=== PATIENT | male | born 1975 | race Caucasian/White ===

== ENCOUNTER 2020-04-02 20:27 | Inpatient (IN) | payer OTHER ==
[~2020-04-02] VITALS: Ht 180.3 cm; Wt 114.3 kg
[2020-04-02 20:35] VITALS: BP 147/97
[2020-04-02 20:53] LABS: ABSOLUTE NEUTROPHILS 9.6 thou/uL (1.4-8.2); BASOPHILS 0.9 % (0.0-2.0); EOSINOPHILS 2.8 % (0.0-3.0); HEMATOCRIT 51.5 % (42.0-52.0); HEMOGLOBIN 17.4 gm/dL (14.0-18.0); LYMPHOCYTES 35.5 % (24.0-44.0); MCH 29.6 pg (26.0-34.0); MCHC 33.9 g/dL (28.0-37.0); MCV 87.2 fL (80.0-100.0); MONOCYTES 5.9 % (1.0-8.0); POLYS 54.9 % (36.0-66.0); RDW 13.3 % (10.5-14.5); WBC 17.5 thou/uL (4.0-11.0)
[2020-04-02 21:13] LABS: PLATELET COUNT 218 thou/uL (150-400)
[2020-04-02 21:18] LABS: ANION GAP 12 mmol/L (7-16); BUN 14 mg/dL (7-18); CALCIUM 9.2 mg/dL (8.5-10.1); CHLORIDE 102 mmol/L (98-107); CO2 25 mmol/L (21-32); CREATININE 1.6 mg/dL (0.7-1.3); GLUCOSE 123 mg/dL (74-106); POTASSIUM 3.4 mmol/L (3.5-5.1); SODIUM 139 mmol/L (136-145)
[2020-04-02 21:25] VITALS: BP 148/104
[2020-04-02 21:25] LABS: DIRECT BILIRUBIN < 0.1 mg/dL (<0.1-0.2); SGOT 51 U/L (15-37); SGPT 118 U/L (30-65); TOTAL BILIRUBIN 0.2 mg/dL (0.2-1.0); TROPONIN-I <0.06 ng/mL (<0.06)
[2020-04-02 21:54] LABS: CHOLESTEROL 162 mg/dL (<200); HDL CHOLESTEROL 43 mg/dL (>40); LDL CHOLESTEROL 64 mg/dL (<100); TC:HDL 3.8 Ratio (Not establshd); TRIGLYCERIDE 279 mg/dL (<150); VLDL 56 mg/dL (<40)
[2020-04-02 21:56] LABS: SERUM ASSESSMENT Clear
[2020-04-02 23:00] VITALS: BP 148/106
[2020-04-02 23:15] VITALS: BP 157/96
[2020-04-02 23:30] VITALS: BP 148/99
[2020-04-02 23:45] VITALS: BP 136/100
[2020-04-03] VITALS (12 sets, daily range): BP systolic 117–150; BP diastolic 75–100
[2020-04-03 04:40] LABS: ANION GAP 11 mmol/L (7-16); BUN 9 mg/dL (7-18); CALCIUM 8.2 mg/dL (8.5-10.1); CHLORIDE 99 mmol/L (98-107); CO2 24 mmol/L (21-32); CREATININE 1.4 mg/dL (0.7-1.3); GLUCOSE 125 mg/dL (74-106); POTASSIUM 3.4 mmol/L (3.5-5.1); SODIUM 134 mmol/L (136-145); TROPONIN-I <0.06 ng/mL (<0.06)
[2020-04-03 04:54] LABS: HEMATOCRIT 43.8 % (42.0-52.0); MCH 32.5 pg (26.0-34.0); MCHC 34.1 g/dL (28.0-37.0); RBC 4.6 mil/uL (4.50-6.00); WBC 10.1 thou/uL (4.0-11.0)
[2020-04-03 05:20] LABS: HEMOGLOBIN 14.9 gm/dL (14.0-18.0); MCV 95.2 fL (80.0-100.0)
--- NOTE | 2020-04-03 05:37 | NUR ---
2250 RECIEVED PER BED FROM [facility]. INSTRUCTED CHEST PAIN WOULD CONTINUE DUE TO UNABLE TO STENT ONE ARTERY AND IT WOULD CLOSE OFF ITSELF PER [employer] MARLON AND PATIENT AGREED. ON NTG GTT PER ORDERS, ON BEDREST. CATH CHECKS INITIATED AND ADMISSION PROCESS COMPLETED. INSTRUCTED ON BEDREST UNTIL 0400. 0025 BLOOD PRESSURES REMAIN ELEVATED AND PATIENT REMAINS WITH CHEST PAIN. DR. HERNANDEZ NOTIFIED. NTG GTT TURNED TO 25MCG/MIN AND NOT TO TITRATE UP MORE. USE MOROPHINE 4 MG EVERY [address] DREWAFFIRED WE WILL NOT TOTALLY GET RID OF PAIN. CONTINUE TO ASSES. [address] 160'S FOR 5 MIN PAST VOIDING IN URINAL. [address] 160'S FOR 45 MIN STARTING AT 0109 AND EKG DONE SHOWING ST VS AT. DR. JOYCE NOTIFIED OF ELEVATED HR, BP AND CONTINUE CHEST PAIN. ORDERS GIVEN. 0445 PATIENT ALLOWED TO SIT UP AND MOVE AROUND. MOROPHINE GIVEN FOR CHEST PAIN OF 10/26. PATIENT BELCHED AND STATED IS NOW A 09/25. 0520 PATIENT SLEEPING. CONTINUE TO ASSES CLOSELY.
--- NOTE | 2020-04-03 08:28 | EKG ---
[facility] [place] [address] ELECTROCARDIOGRAM REPORT Name: CHRISTI LIU Room #: 201-P ADM IN M.R.#: [id number] Admission: 04/02/20 Attend Phys: Spenser Ballesteros MD Discharge: Date of : 73 Report #: [id number] THIS REPORT FOR: cc: TICO - No family physician/PCP FAM - No family physician/PCP Carlos Enrique Meza MD 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: LILILEDTerri : 1975 Requested By: Martha Hoskins Order Number: [id number] MD: Carlos Enrique Meza Measurements Intervals [place] Rate: 71 P: -9 VT: 128 QRS: -11 QRSD: 99 T: -5 QT: 379 QTc: 412 Interpretive Statements Sinus rhythm Paired ventricular premature complexes Anterolateral infarct, acute (LAD) No previous ECG available for comparison Electronically Signed On 04-03-2020 8:27:51 PROJECT MANAGEMENT INSTRUCTOR by Carlos Enrique Meza [email or web address] <ELECTRONICALLY SIGNED> By: Carlos Enrique Meza MD, [facility] 04/03/20 0827 35 35 Carlos Enrique Meza MD, [facility] /EPI
--- NOTE | 2020-04-03 08:30 | EKG ---
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: Wood Mcdonald : 1975 Requested By: Eric Grullon Order Number: [id number] MD: Carlos Enrique Meza Measurements Intervals [place] Rate: 167 P: -63 [place]: 220 QRS: 88 QRSD: 100 T: -59 QT: 283 QTc: 472 Interpretive Statements Supraventricular tachycardia Anterior infarct, age indeterminate Repolarization abnormality, prob rate related Baseline wander in lead(s) II,III,aVR,aVF,V2,V3,V4 Compared to ECG 04/02/2020 20:36:01 Anterior injury pattern no longer present SVT has replaced sinus rhythm Electronically Signed On 04-03-2020 8:30:16 HOT MILL SUPERVISOR by Carlos Enrique Meza [email or web address] <ELECTRONICALLY SIGNED> By: Carlos Enrique Meza MD, [facility] 04/03/20 0830 1 1 Carlos Enrique Meza MD, [facility] /EPI
--- NOTE | 2020-04-03 08:33 | EKG ---
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: CARO : 1975 Requested By: Renata Amado Order Number: [id number] MD: Carlos Enrique Meza Measurements Intervals [place] Rate: 79 P: 49 MS: 134 QRS: 32 QRSD: 97 T: 31 QT: 350 QTc: 402 Interpretive Statements Sinus rhythm Anterior infarct, recent Baseline wander in lead(s) II,aVF Compared to ECG 04/02/2020 20:36:01 SVT is no longer present Electronically Signed On 04-03-2020 8:33:27 ELECTRONICS ENGINEERING PROFESSOR by Carlos Enrique Meza [email or web address] <ELECTRONICALLY SIGNED> By: Carlos Enrique Meza MD, [facility] 04/03/20 0833 3 3 Carlos Enrique Meza MD, [facility] /EPI
--- NOTE | 2020-04-03 09:55 | 2DMMODE ---
[address] [address] 2 D/M-MODE ECHOCARDIOGRAM Name: CHRISTI LIU Room #: 201-P ADM IN M.R.#: [id number] Admission: 04/02/20 Attend Phys: Spenser Ballesteros MD Discharge: Date of : 73 Report #: [id number] THIS REPORT FOR: cc: FAM - No family physician/PCP FAM - No family physician/PCP Eric Grullon MD ~ APPROVED REPORT Study performed: 04/03/2020 09:40:55 EXAM: Comprehensive 2D, Doppler, and color-flow Echocardiogram Patient Location: Bedside Room #: 201 Status: routine BSA: 2.11 HR: 86 bpm BP: 149/100 mmHg Rhythm: NSR Other Information Study Quality: Adequate Indications CAD Chest Pain Hypertension/HDD STEMI 2D Dimensions IVC: 15.00 mm Volumes Left Atrial Volume (Systole) Single Plane 4CH: 27.72 mL Single Plane 2CH: 21.92 mL LA ESV Index: 14.00 mL/m2 Aortic Valve AoV Peak Abe.: 1.04 m/s AO Peak Gr.: 4.35 mmHg LVOT Max P.54 mmHg LVOT Max V: 0.80 m/s Mitral Valve E/A Ratio: 0.6 MV Decel. Time: 228.[address] [place] [address] 2 D/M-MODE ECHOCARDIOGRAM Name: CHRISTI LIU Room #: 201-P [facility] IN M.R.#: [id number] Admission: 04/02/20 Attend Phys: Spenser Ballesteros, Discharge: Date of : 73 Report #: [id number] E Max Abe.: 0.42 m/s MV A Abe.: 0.70 m/s MV PHT: 66.33 ms IVRT: 143.02 ms Pulmonary Valve PV Peak Abe.: 0.86 m/s PV Peak Gr.: 2.97 mmHg Pulmonary Vein P Vein S: 0.41 m/s P Vein A: 0.35 m/s P Vein D: 0.20 m/s P Vein A Dur.: 110.7 msec P Vein S/D Ratio: 2.05 Left Ventricle The left ventricle is normal size. There is hypokinesis in the apical wall. There is normal left ventricular wall thickness. Left ventricular systolic function is mildly decreased. LVEF is 40-45%. Grade I - abnormal relaxation pattern. Atria The left atrium size is normal. The right atrium size is normal. Aortic Valve The aortic valve is normal in structure. No aortic regurgitation is present. There is no aortic valvular stenosis. Mitral Valve The mitral valve is normal in structure. Trace mitral regurgitation. No evidence of mitral valve stenosis. Tricuspid Valve The tricuspid valve is normal in structure. There is no tricuspid valve regurgitation noted. Pulmonic Valve The pulmonary valve is normal in structure. There is no pulmonic valvular regurgitation. Great Vessels The aortic root is normal in size. IVC is normal in size and collapses >50% with inspiration. Pericardium There is no pericardial effusion. [facility] [address] [address] 2 D/M-MODE ECHOCARDIOGRAM Name: CHRISTI LIU Room #: 201-P [facility] IN .R.#: [id number] Admission: 04/02/20 Attend Phys: Spenser Ballesteros, Discharge: Date of : 73 Report #: [id number] <Conclusion> The left ventricle is normal size. LVEF is 40-45%. There is hypokinesis in the apical wall. The aortic valve is normal in structure. The mitral valve is normal in structure. Trace mitral regurgitation. The tricuspid valve is normal in structure. The pulmonary valve is normal in structure. There is no pericardial effusion. <ELECTRONICALLY SIGNED> By: Eric Grullon MD 04/03/2055 4 4 Eric Grullon MD /INF
--- NOTE | 2020-04-03 11:38 | NUR ---
Met with patient, mom at bedside. patient admits with chest pain. 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 Patient drives, employed, has health care and PCP. Anticipate no dc needs from casemgt. Avail if needs arise.
--- NOTE | 2020-04-03 17:06 | NUR ---
PT HAVING CHEST PAIN THIS MORNING, STATES IT FEELS SIMILAR TO THE FEELING WHEN HE CAME IN. RATES IN 09/25. NURSE PRACTITIONER FOR CARDIOLOGY SAW HIM, ORDERED GI COCKTAIL. GI COCKTAIL AND PAIN MEDICATION GIVEN. PT STATES IT DID NOT HELP MUCH. WEANING NITRO GTT PER CARDIOLOGY. PT GIVEN LAST DOSE OF THE THREE MORPHINE DOSES ORDERED, ASKED DR BYERS ABOUT PAIN MEDICATION, HE DEFERED TO CARDIOLOGY. LAB CALLED WITH A CRITICAL TROPONIN OF 187.93, CALLED DR HERNANDEZ AND INFORMED HIM OF ONGOING CHEST PAIN, NO RELIEF WITH GI COCKTAIL, HE ORDERED MORPHINE TO CONTINUE AND A DOSE OF LISINOPRIL. WAS ABLE TO SLEEP THIS AFTERNOON FOR A BIT. PT UP TO BATHROOM WITH NO DIFFICULTY THIS EVENING. SIVAKUMAR BETTENCOURT.
[2020-04-04] VITALS (9 sets, daily range): BP systolic 92–132; BP diastolic 61–89
[2020-04-04 01:06] LABS: GLYCOHEMOGLOBIN (HGB A1C) 5.1 % (4.8-5.6)
--- NOTE | 2020-04-04 06:24 | NUR ---
0050 PATIENT SLEEPING WITHOUT COMPLAINTS. TELEMETRY SHOW ST VS AT RATE 150-170. AWAKENED PATIENT VSS. DENIES FEELING PALPATATIONS. 132/[address] ISABEL. ORDERS FOR CARDIZEM GTT AND START BOLUS NEEDED FOR RAPID HEART RATE. 0125 BOLUS GIVEN AND GTT STARTED AT 5ML/HR. 107/74 0145 CONVERTED TO SR 70'S, BP 96/67. GTT TURNED OFF. 0500 SLEEPING WITHOUT COMPLAINTS. UP AD ADELA TO BATHROOM. BP AT 0355 100/70. DENIES ANY PRESENT DISCOMFORT. WORKING ON GOALS AND PLAN OF CARE FOR NOC. PROGRESSING SLOWLY TOWARDS DISCHARGE GOALS. CONTINUE TO ASSES CLOSELY.
--- NOTE | 2020-04-04 07:59 | EKG ---
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 : 1975 Requested By: Mi Randhawa Order Number: [id number] MD: Tony Lares Measurements Intervals [place] Rate: 73 P: 23 AK: 140 QRS: 58 QRSD: 96 T: 16 QT: 349 QTc: 385 Interpretive Statements Sinus rhythm Lateral infarct, acute (LAD) Probable anterior infarct, age indeterminate Baseline wander in lead(s) V1 Compared to ECG 04/03/2020 07:14:41 No significant changes Electronically Signed On 04-04-2020 7:58:55 MANAGER SHIP by Tony Lares [email or web address] <ELECTRONICALLY SIGNED> By: Tony Lares MD, FACC 04/04/20 0758 0746 Tony Lares MD, FACC /EPI
--- NOTE | 2020-04-04 16:48 | NUR ---
RECEIVED PT'S CARE AROUND 0710; PT. ON BED; RESTING WITH EYES CLOSED; SLEEP INTERRUPTED DURING SHIFT CHANGED; ALERT; DURING AM ASSESSMENT PT. AOX4; NO C/O PAIN; AM MEDICATIONS GIVEN; EDUCATED ABOUT FALL PRECAUTIONS; PER DR. BYERS CHECK IF CARDIOLOGY OK FOR PT. TO BE D/C; PER GEOVANNI CORK TILE FLOOR LAYER PROPERTY LOSS INSURANCE CLAIM ADJUSTER PT. REQUIRE TO STAY ONE MORE NIGHT; PHYSICIAN NOTIFIED; PT. NOTIFIED; EDUCATED ABOUT AMBULATING AROUND THE UNIT AND MONITOR HR AND PAIN; ST. UNDERSTANDING; THROUGH THE DAY PT. AMBULATED AROUND THE UNIT X2; NO C/O PAIN; SR ON THE MONITOR; MONITORING; DURING THE EVENING SBP LESS THAN 100; PM BP MEDICATION HOLD; ASSESSMENT CHARGED; FOLLOWING POC; WILL PASS ON REPORT;
[2020-04-05 04:45] VITALS: BP 129/95
--- NOTE | 2020-04-05 07:37 | NUR ---
ASSUMED CARE OF PATIENT AT 1900; VSS/ASSESSMENTS CHARTED; FEVER MANAGED WITH PO TYLENOL AND RESOLVED; SR W/PVCS ON THE MONITOR; SLEPT QUIETLY THROUGHOUT MOST OF THE NOC; PLAN IS TO D/C TO HOME WITH MEDS; WILL CONTINUE TO MONITOR
[2020-04-05] MEDS ORDERED: EFFIENT10 MG PO (07:46)
[2020-04-05] MEDS ORDERED: CRESTOR40 MG PO (07:46)
[2020-04-05] MEDS ORDERED: LISINOPRIL5 MG PO (07:46)
[2020-04-05] MEDS ORDERED: IMDUR 30 MG TAB30 M1 PO (07:46)
[2020-04-05] MEDS ORDERED: ASPIRIN325 PO (07:46)
[2020-04-05] MEDS ORDERED: METOPROLOL SUCC25 M1 PO (07:46)
--- NOTE | 2020-04-05 07:46 | EKG ---
[facility] [place] [address] ELECTROCARDIOGRAM REPORT Name: CHRISTI LIU Room #: 201-P ADM IN M.R.#: [id number] Admission: 04/02/20 Attend Phys: Spenser Ballesteros MD Discharge: Date of : 73 Report #: [id number] THIS REPORT FOR: cc: TICO - No family physician/PCP TICO - No family physician/PCP Carlos Enrique Meza MD [facility] ~ THIS REPORT FOR: //name// [facility] Test Date: 2020-04-05 Test Time: 07:09:30 Pat Name: CHRISTI LIU Department: Room: 201 Gender: M Intervention Teacher: SHAREE : 1975 Requested By: Sarah Barrera Order Number: [id number] MD: Carlos Enrique Meza Measurements Intervals [place] Rate: 80 P: 24 [place]: 128 QRS: 43 QRSD: 101 T: 36 QT: 356 QTc: 411 Interpretive Statements Sinus rhythm Ventricular premature complex Anterolateral infarct, acute (LAD) Compared to ECG 04/04/2020 07:46:48 Ventricular premature complex(es) now present Myocardial infarct finding still present Electronically Signed On 04-05-2020 7:46:10 INSURANCE CLAIMS PROCESSOR by Carlos Enrique Meza [email or web address] <ELECTRONICALLY SIGNED> By: Carlos Enrique Meza MD, FAC 04/05/2046 8 8 Carlos Enrique Meza MD, FAC /EPI
[2020-04-05 08:19] LABS: HEMATOCRIT 45.7 % (42.0-52.0); HEMOGLOBIN 15.7 gm/dL (14.0-18.0); MCH 29.7 pg (26.0-34.0); MCHC 34.4 g/dL (28.0-37.0); RBC 5.29 mil/uL (4.50-6.00); RDW 13.4 % (10.5-14.5); WBC 10.2 thou/uL (4.0-11.0)
[2020-04-05 08:43] VITALS: BP 129/95
[2020-04-05 08:44] LABS: MCV 86.4 fL (80.0-100.0)
[2020-04-05 08:48] LABS: CREATININE 1.2 mg/dL (0.7-1.3); POTASSIUM 4.1 mmol/L (3.5-5.1)
== END 2020-04-05 12:00 | disposition home or self-care (01) | DRG 246 ==
LOC: ER 20:27 → EROBS 21:13 → 2N 21:13
PROVIDERS: Emergency Medicine; Nurse Practitioner; Nurse Practitioner Family; ADMIT Internal Medicine; ATTEND Internal Medicine
PROC: B211YZZ Fluoroscopy of Multiple Coronary Arteries using Other Contrast (ICD-10-PCS; principal; 2020-04-02)
PROC: 4A023N7 Measurement of Cardiac Sampling and Pressure, Left Heart, Percutaneous Approach (ICD-10-PCS; principal; 2020-04-02)
PROC: 027034Z Dilation of Coronary Artery, One Artery with Drug-eluting Intraluminal Device, Percutaneous Approach (ICD-10-PCS; principal; 2020-04-02)
DX: I21.09 ST elevation (STEMI) myocardial infarction involving other coronary artery of anterior wall (principal); N17.0 Acute kidney failure with tubular necrosis; F17.210 Nicotine dependence, cigarettes, uncomplicated; E78.5 Hyperlipidemia, unspecified; I12.9 Hypertensive chronic kidney disease with stage 1 through stage 4 chronic kidney disease, or unspecified chronic kidney disease; N18.9 Chronic kidney disease, unspecified; I25.5 Ischemic cardiomyopathy; Z82.49 Family history of ischemic heart disease and other diseases of the circulatory system; Z79.82 Long term (current) use of aspirin; Z79.899 Other long term (current) drug therapy
CPT/HCPCS: 10081